=== PATIENT | female | born 2000 | race Caucasian/White ===

== ENCOUNTER 2025-01-18 17:27 | Emergency (ER) | payer BC, SELFPAY ==
[2025-01-18 17:30] VITALS: BP 133/92
[2025-01-18 18:17] VITALS: BP 124/89
[2025-01-18] MEDS: ZOFRAN 4 MG IV (18:29)
[2025-01-18] MEDS: NSS 1000 IV ×2 (18:29→20:51)
--- NOTE | 2025-01-18 18:29 | ED.GENMED ---
History of Present Illness
General
Chief Complaint: Headache
Source: patient
Exam Limitations: none
Time Seen by Provider: 01/18/25 18:19
Nursing documentation reviewed up to this point in time: agreed with
History of Present Illness
History of Present Illness:
Patient to ED with complaitn of severe 'migraine'. States she has had frequent headaches recently. Outpatient MRI ordered by PCP and according to her showed sinusitis but otherwise was normal. She is calling her headaches migraines but has not
had prior diagnosis. Takes ibuprofen which ususally resolves her pain. She took 600mg approx 3 hours ago without improvement. Denies fever/chills. +nausea, no vomiting. No history of trauma. States [place] sisters [place].
states shestarted complaining that the sun was bothering her and then felt hot. Shortly after pain began. To ED accompainied by spouse.
Past History
Past History
ED Past Medical History: None
ED Past Surgical History: Other ()
Social History
Tobacco: Non-smoker
Alcohol: None
Drug: None
Review of Systems
Review of Systems
Allergies reviewed?: Yes
All Other Systems: ROS reviewed and negative except as documented in HPI and ROS
Constitutional: Reports other (light sensitive)
EENT: Reports no symptoms
Respiratory: Reports no symptoms
Cardiac: Reports no symptoms
ABD/GI: Reports nausea
: Reports no symptoms
Musculoskeletal: Reports no symptoms (No neck or back pain)
Skin: Reports no symptoms
Neurological: Reports dizzy and headache
Psychiatric: Reports no symptoms
Phy Exam
General Physical Exam
General Presentation: moderate distress
General age: appears stated age
General Skin: warm and dry
General Habitus: normal
General Mental: alert
Neurological Exam
Neurological Exam: alert, oriented x3, CN II-XII intact, no motor deficits, no sensory deficits and speech normal
Musculoskeletal Exam
Musculoskeletal Exam: full ROM, neuro vasc intact and other (No neck or back pain)
Skin Exam
Skin Exam: normal color, warm/dry and no rash
Psychiatric Exam
Psychiatric Exam: normal mood/affect
Course
Orders/Labs/Results
Orders:
Orders
01/18/25 18:24
Morphine Sulfate 2 mg IV NOW STA
Ondansetron Injectable [Zofran] 4 mg IV NOW STA
01/18/25 18:25
CT Head W/o Iv Contrast Urgent
Comment:
Reason For Exam: severe headache.
0.9% Sodium Chloride 1000 ml [Nss] 1,000 ml IV BOLUS
01/18/25 20:12
Ketorolac [Toradol] 30 mg IV NOW STA
01/18/25 20:47
0.9% Sodium Chloride 1000 ml [Nss] 1,000 ml IV BOLUS
01/18/25 21:54
Acetaminophen [Tylenol] 1,000 mg PO NOW STA
Vital Signs
Initial and Last Documented VS:
Initial Vital Signs
Pulse Resp BP Pulse Ox
123 20 133/92 100
01/18/25 17:30 01/18/25 17:30 01/18/25 17:30 01/18/25 17:30
Last Documented Vital Signs
Pulse Resp BP Pulse Ox
92 13 117/83 100
01/18/25 21:00 01/18/25 21:00 01/18/25 21:00 01/18/25 21:00
*Radiology
Radiology exam reviewed: radiology read reviewed
*Pulse Oximetry
Patient hypoxic: no
*Critical Care Note
Total Time (30-74mins, 75-104mins- exclusive of procedures): Not Applicable
Update Note
Update Note:
Patient to ED with complaint of severe headache. CT neg for bleeding/swelling. No acute findings. SHe is improved iwth IVF and toradol. WIll discharge home and she will followup with PCP on Monday. Given instructions on s/s to return to eD and
she is agreeable to plan.
ED Attending Note
-
Portions of this chart may have been created with voice recognition software.� Occasional wrong word or��sound alike� substitutions may have occurred due to the inherent limitations of voice recognition software.
Discharge Plan
Departure
Patient Disposition: Home (Routine Discharge)
Date of Disposition: 01/18/25
Time of Disposition: 21:55
Patient with high blood pressure during this ER visit?: No
Condition: Good
Covid-19: Not Applicable
Discharge Problem:
Headache
Instructions: Headache, Adult (DC)
Referrals:
ELI ALVES [Other]
Activity Restrictions/Additional Instructions:
Follow up with your family doctor.
Interventions
Interventions:
*Risk Screen - Suicide Last Done: 01/18/25 17:30
*General Assessment Last Done: 01/18/25 17:30
*Neglect/Abuse Screening Last Done: 01/18/25 17:30
*ED- Fall Risk Assessment Last Done: 01/18/25 18:23
*ED COVID-19 Vaccine History Last Done: 01/18/25 18:08
ED- Neurological Assessment Last Done: 01/18/25 18:22
Discharge Date and Time
Print Language: FRENCH
[2025-01-18 19:43] VITALS: BP 121/75
[2025-01-18] MEDS: TORADOL 30 MG IV (20:45)
[2025-01-18 20:49] VITALS: BP 119/69
[2025-01-18 21:00] VITALS: BP 117/83
[2025-01-18 22:00] VITALS: BP 123/82
[2025-01-18] MEDS: TYLENOL 1000 MG PO (22:01)
== END 2025-01-18 22:25 | disposition home or self-care (01) ==
LOC: EMR 17:27
PROVIDERS: EMERGENCY PHYSICIAN Student in an Organized Health Care Education/Training Program
DX: R51.9 Headache, unspecified (principal); R11.0 Nausea; R42 Dizziness and giddiness; Z88.8 Allergy status to other drugs, medicaments and biological substances
CPT/HCPCS: 99284; 96374; 96375 ×2; 96361 ×2; 70450